=== PATIENT | male | born 1995 | race Caucasian/White ===

== ENCOUNTER 2017-08-25 19:42 | Emergency (ER) | payer BC, SELFPAY ==
[2017-08-25 19:43] VITALS: BP 146/96; PULSE 70; RESP 16; TEMP 36.9; O2SAT 97; BMI 30.4
[2017-08-25] MEDS: Tetracaine 0.5% Ophthalmic Bottle 1 DRP LEFT EYE (20:43)
[2017-08-25] MEDS: Fluorescein 1 MG STRIP 1 STRIP LEFT EYE (20:45)
--- NOTE | 2017-08-25 21:13 | ED.VISSUMM ---
- ER Visit Summary Date of Service: 08/25/17 Chief Complaint: Possible metal in eye History of Present Illness: The patient is a 21 M who was grinding metal yesterday. He was wearing safety glasses but thinks he got something in his left eye. He irrigated his eye at that time but it has been more painful today. He does have light sensitivity. He does not normally wear glasses or contacts. Physical Examination: Vital signs are unremarkable. Patient sitting upright in bed in a well lit room. He is more comfortable with lights turned down. Head neck examination reveals left eye to be injected. There does appear to be a small foreign body noted at the 4 o'clock position of the left eye as you look at him. Extraocular movements are fully intact. Pupils are equal and reactive. Test Results: [] Emergency Department Course and Treatment: Tetracaine is applied to the left eye which does improve his symptoms. Fluoroscein is applied with no dye uptake noted. Unfortunately this slit-lamp is not functioning currently. I do not feel comfortable using the eye bur to remove this foreign body without appropriate visualization with the slit-lamp. I spoke with Dr. Nova who asked to have the patient call tomorrow morning 8 AM and they will see him at that time. Treatment Plan: [] Disposition: Discharge Impression: Foreign body left eye This note was generated with [employer] dictation software. It may contain incorrect words, spelling, and punctuation that were not noted in review of the chart prior to signing ED Disposition - Plan for ED Patient: Disposition: Home or Assisted Living Chief Complaint: Eye Problem Instructions: ED Foreign Body Cornea Referrals: Jose Blackwood MD [Primary Care Provider] - Dickson Nova MD [STAFF PHYSICIAN] - 1 Day
[2017-08-25] MEDS: Gentamicin Sulfate 1 OPTH.BTL 1 DRP LEFT EYE (21:23)
[2017-08-25 21:24] VITALS: BP 140/77; PULSE 70; RESP 15; O2SAT 98
== END 2017-08-25 21:35 | disposition home or self-care (01) ==
PROVIDERS: Emergency Provider Emergency Medicine; Family Provider Family Medicine; PCP Family Medicine
DX: T15.92XA Foreign body on external eye, part unspecified, left eye, initial encounter (principal); S00.252A Superficial foreign body of left eyelid and periocular area, initial encounter; W45.8XXA Other foreign body or object entering through skin, initial encounter; Y93.9 Activity, unspecified; Y92.9 Unspecified place or not applicable; Y99.9 Unspecified external cause status
CPT/HCPCS: 99283